=== PATIENT | female | born 1965 | race American Indian/Alaskan Native ===

== ENCOUNTER 2018-10-25 07:21 | Outpatient (CLI) | payer OTHER ==
--- NOTE | 2018-10-25 11:38 | Mammography Report ---
BILATERAL DIGITAL SCREENING MAMMOGRAM with CAD: 10/25/18 CLINICAL: Routine screening. COMPARISON:None available. However, a prior mammogram was apparently done at [facility] 2 years ago. FINDINGS: The breasts are heterogeneously dense, which may obscure small masses. An oval circumscribed right upper outer mass or cyst requires comparison with a prior mammogram or additional imaging.No architectural distortion or suspicious calcifications.The left breast is negative. IMPRESSION: Right mass or cyst requiring further evaluation. BI-RADS CATEGORY: 0 -- Additional Evaluation Required RECOMMENDATION: Comparison with a previous mammogram. We will attempt to obtain a prior mammogram for comparison. If we do not obtain a prior mammogram within 30 days, a revised report will be issued recommending a recall for additional imaging. Please be advised that the patient should not schedule an appointment for return until adequate time (at least 2 weeks) has passed for us to obtain the prior mammogram. ACR BI-RADS MAMMOGRAPHIC CODES: 0 = Needs additional imaging evaluation; 1 = Negative; 2 = Benign; 3 = Probably benign; 4 = Suspicious; 5 = Malignant; 6 = Known biopsy-proven malignancy COMMENT: 1. Dense breast tissue, i.e., adenosis, fibrocystic changes, etc., may obscure an underlying neoplasm. 2. Approximately 10% of cancers are not detected with mammography. 3. A negative mammography report should not delay biopsy if a clinically suspicious mass is present. COMMENT: Patient follow-up letters are generated via our [employer] application.
== END 2018-10-25 07:22 | disposition home or self-care (01) ==
LOC: MAMMO 07:21
PROVIDERS: ATTEND Internal Medicine
DX: Z12.31 Encounter for screening mammogram for malignant neoplasm of breast (principal)
CPT/HCPCS: 77067

== ENCOUNTER 2018-12-15 08:18 | Outpatient (CLI) | payer OTHER ==
--- NOTE | 2018-12-15 11:04 | Ultrasound Report ---
Right mammogram and right breast ultrasound: The patient initially had right breast ultrasound based on an asymmetric nodule identified on recent screening exam on October 25, 2018. The nodule measures 13 mm with discrete margins. Ultrasound in the upper outer quadrant consistent location with the mammographic nodule demonstrates in the 10:00 location 4 cm from the nipple there is a rounded anechoic circumscribed nodule measuring 3.5 mm. 6 cm from the nipple is a hypoechoic nodule which appears circumscribed but somewhat taller than wide also measuring approximately 2.8 mm in shortest diameter. The longest diameter was not measured and is slightly greater. There is no enhancement of distal echoes but the margins are relatively sharp. A repeat mammogram demonstrates resolution of the previously noted nodule. Impressions: 1. Mammographic resolution of dominant nodule. 2. The ultrasound characteristics of the nodule 6 cm from the nipple do not confirm this to be a cyst. The nodule 4 cm from the nipple however is consistent with a simple cyst. Recommendation: Ultrasound guided aspiration/biopsy of nodule 6 cm from nipple. The findings and recommendations have been discussed with the patient. She has been directed to contact your office for request and scheduling. BI-RADS CATEGORY: 4 = Suspicious ACR BI-RADS MAMMOGRAPHIC CODES: 0 = Needs additional imaging evaluation; 1 = Negative; 2 = Benign; 3 = Probably benign; 4 = Suspicious; 5 = Malignant; 6 = Known biopsy-proven malignancy COMMENT: 1. Dense breast tissue, i.e., adenosis, fibrocystic changes, etc., may obscure an underlying neoplasm. 2. Approximately 10% of cancers are not detected with mammography. 3. A negative mammography report should not delay biopsy if a clinically suspicious mass is present.
== END 2018-12-15 08:19 | disposition home or self-care (01) ==
LOC: MAMMO 08:18
PROVIDERS: ATTEND Internal Medicine
DX: N63.10 Unspecified lump in the right breast, unspecified quadrant (principal); G43.909 Migraine, unspecified, not intractable, without status migrainosus

== ENCOUNTER 2018-12-26 08:10 | Outpatient (CLI) | payer OTHER ==
--- NOTE | 2018-12-26 10:41 | Ultrasound Report ---
RIGHT BREAST ULTRASOUND: 12/26/18 08:10:00 CLINICAL: The patient return for biopsy of a lesion at 10 o'clock. COMPARISON: 12/15/18 FINDINGS: Ultrasound of the right breast demonstrated a slightly irregular relatively anechoic cyst with posterior enhancement at 10 o'clock 6 cm from the nipple. It appears to correlate with the previously identified lesion.Several additional small cyst in the vicinity. No solid mass or shadowing. IMPRESSION: A probably benign cyst. BI-RADS 3 - - Probably Benign RECOMMENDATION: 6 month followup right breast ultrasound and mammogram if needed.
== END 2018-12-26 08:11 | disposition home or self-care (01) ==
LOC: SPVWC 08:10
PROVIDERS: ATTEND Internal Medicine
DX: R92.8 Other abnormal and inconclusive findings on diagnostic imaging of breast (principal)

== ENCOUNTER 2020-05-28 10:56 | Outpatient (CLI) | payer OTHER ==
--- NOTE | 2020-05-29 07:54 | Mammography Report ---
BILATERAL DIGITAL SCREENING MAMMOGRAM WITH CAD HISTORY: Screening mammogram. TECHNIQUE: Routine digital mammographic imaging performed. This examination was interpreted with katie mccann benefit of Computer-aided Detection analysis. COMPARISON: 07/18/2019, 12/15/2018, 11/04/2018, 02/25/2017, 03/10/2016. FINDINGS: Breast Density: heterogeneously dense breast parenchymal pattern which somewhat lessens the sensitivi ty of the evaluation. Digital CC and MLO views demonstrate no mammographic evidence of malignancy. A new left retroareolar far posterior breast asymmetry is noted on the MLO view. No suspicious findings within the right yandy ast. IMPRESSION: New left retroareolar far posterior breast asymmetry for which additional mammographic views and poss ible ultrasound is recommended. BIRADS 0-Incomplete: Needs additional imaging evaluation NOTE: WE WILL RECALL THE PATIENT FOR THIS ADDITIONAL EVALUATION. FURTHER INFORMATION: According to the [employer], yearly mammograms are recommend ed starting at age 40 and continuing as long as a woman is in good health. Clinical Breast Exams shou ld be part of a periodic health exam-about every 3 years for women in their 20s and 30s and every yea r for women 40 and over. Breast self exam is an option for women starting in their 20s. Any breast ch adonis noted on a breast self exam should be reported promptly to the patient's healthcare provider. Br east MRI is recommended for women with an approximately 20-25% or greater lifetime risk of breast can cer, including women with a strong family history of breast or ovarian cancer and women who have been treated for Hodgkin's disease. A negative Mammography report should not discourage follow up or biopsy of a clinically significant f inding and/or abnormality. Dense breast tissue may obscure small neoplasms. The patient will be entered into a reminder system with a target due date for the next screening mamm ogram. Signer Name: Noé Mullins MD Signed: 05/29/2020 7:50 AM Workstation Name: [id number]
== END 2020-05-28 10:57 | disposition home or self-care (01) ==
LOC: MAMMO 10:56
PROVIDERS: ATTEND Internal Medicine
DX: Z12.31 Encounter for screening mammogram for malignant neoplasm of breast (principal)
CPT/HCPCS: 77067

== ENCOUNTER 2020-10-08 08:06 | Outpatient (CLI) | payer OTHER ==
--- NOTE | 2020-10-08 09:08 | Mammography Report ---
DIGITAL DIAGNOSTIC MAMMOGRAM WITH CAD CONVENTIONAL, 10/08/2020 CLINICAL INFORMATION / INDICATION: Left breast asymmetry on screening mammography. ABN MAMMO TECHNIQUE: Digital left mammographic imaging was performed. Spot compression views were obtained. This examination was interpreted with the benefit of Computer-aided Detection analysis. COMPARISON: 10/25/2018 and 05/28/2020. FINDINGS: Breast Density: The breasts are heterogeneously dense, which may obscure small masses. No dominant mass, suspicious calcifications or architectural distortion in the left breast. No persistent left breast asymmetry is seen on additional imaging. No change has occurred since prior studies. IMPRESSION: No mammographic evidence of malignancy. Follow up recommendation: Routine yearly BI-RADS Category 1: Negative. A "normal" or negative report should not discourage follow up or biopsy of a clinically significant f inding. A written summary of these findings will be mailed to the patient. The patient will be entered into a mammography reporting system which will generate a reminder letter for the patient's next appointmen t at the appropriate interval. According to the [employer], yearly mammograms are recommended starting at age 40 and continuing as long as a woman is in good health. Breast MRI is recommended for women with an [place] roximately 20-25% or greater lifetime risk of breast cancer, including women with a strong family his tory of breast or ovarian cancer and women who have been treated for Hodgkin's disease. Signer Name: Roderick Robles MD Signed: 10/08/2020 9:04 AM Workstation Name: [id number]
== END 2020-10-08 08:07 | disposition home or self-care (01) ==
LOC: MAMMO 08:06
PROVIDERS: ATTEND Internal Medicine
DX: R92.8 Other abnormal and inconclusive findings on diagnostic imaging of breast (principal)